=== PATIENT | female | born 2005 | race Hispanic/Latino ===

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

== ENCOUNTER 2025-03-30 17:26 | Emergency (ER) | payer SELFPAY ==
[~2025-03-30] VITALS: Ht 149.9 cm; Wt 49.4 kg
[~2025-03-30 17:26] MED LIST: KEFLEX125 MG/5 M PO
[2025-03-30 17:33] VITALS: PULSE 99; RESP 16; TEMP 98.5
[2025-03-30 17:54] LABS: BASOPHILS % 0.8 % (0.0-1.0); EOSINOPHILS # (AUTO) 0.1 (0.0-0.4); EOSINOPHILS % 1.9 % (0.0-6.0); HEMATOCRIT 32.6 % (34.2-44.1); HEMOGLOBIN 10.9 g/dL (12.0-16.0); LYMPHOCYTES # (AUTO) 2.1 (1.0-3.2); LYMPHOCYTES % 40.2 % (18.0-39.1); MEAN CORPUSCULAR HGB CONC 33.4 g/dL (31-35); MEAN CORPUSCULAR VOLUME 98.8 fL (81-99); MONOCYTES # (AUTO) 0.4 (0.2-0.8); MONOCYTES % 6.9 % (4.4-11.3); NEUTROPHILS # (AUTO) 2.6 (2.1-6.9); PLATELET COUNT 298 x10e3/uL (140-360); WHITE BLOOD COUNT 5.25 x10e3/uL (4.8-10.8)
[2025-03-30 18:09] LABS: ALBUMIN 3.7 g/dL (3.5-5.0); ALBUMIN/GLOBULIN RATIO 1.2 (0.8-2.0); ANION GAP 14.3 mmol/L (8-16); BILIRUBIN,TOTAL 0.4 mg/dL (0.2-1.2); CALCIUM 8.8 mg/dL (8.4-10.2); CREATININE, SERUM 0.68 mg/dL (0.57-1.11); TOTAL PROTEIN 6.9 g/dL (6.5-8.1)
[2025-03-30 18:23] LABS: POTASSIUM 3.3 mmol/L (3.5-5.1)
[2025-03-30 22:47] VITALS: BP 89/59; PULSE 79; RESP 18; O2SAT 99
[2025-03-30] MEDS: ACETAMINOPHEN 325 MG TAB PO STA (22:50)
== END 2025-03-30 22:50 | disposition home or self-care (01) ==
LOC: ER 17:29
DX: O20.0 Threatened abortion (principal)
CPT/HCPCS: 36415; 76817; 80053; 84702; 85025; 99283